=== PATIENT | male | born 1950 | race African-American/Black ===

== ENCOUNTER 2024-10-24 13:40 | Emergency (ER) | payer MEDICAID, SELFPAY ==
[2024-10-24 13:42] VITALS: BP 168/136; PULSE 103; RESP 18; TEMP 36.4; O2SAT 91; BMI 19.7
--- NOTE | 2024-10-24 14:05 | CT_ITS ---
EXAM: CT brain without IV contrast CLINICAL HISTORY: INJURY/PAIN COMPARISON: None TECHNIQUE: Multiple contiguous axial images through the brain were obtained without the administration of intravenous contrast. Two-dimensional coronal and sagittal reformatted images were reconstructed. Low-dose imaging technique was utilized. FINDINGS: No evidence of acute intracranial hemorrhage, midline shift or mass effect. No definite CT evidence of acute territorial cortical infarction. Ventriculomegaly likely related to a combination of central atrophy and ex vacuo dilation from the chronic insults in the medial left temporal lobe and left frontal lobe. Postsurgical change from prior left frontal and right temporal craniotomies. Generalized cerebral atrophy and chronic small-vessel ischemic disease. No acute depressed calvarial fracture. Paranasal sinuses and mastoid air cells are relatively clear. CT/Brain/Head without Contrast IMPRESSION: 1. No acute intracranial abnormality. 2. Atrophy and chronic ischemic changes as above. Reading Location: [facility]
--- NOTE | 2024-10-24 14:17 | EDS_ITS ---
HPI HPI - Fall History of Present Illness Chief Complaint: Fall Informant: family Occured/Mechanism Narrative: Patient fell out of chair Pain/Injury Location: Right parietal scalp Pain Location: head Worsened by: Nothing Relieved by: Nothing Associated Symptoms Associated Symptoms: Negative for Parasthesias, Weakness, Loss of function, Inability to ambulate or Loss of consciousness Narrative Narrative: Patient presents after a fall that occurred today. Patient was eating lunch when he fell out of the chair and onto the floor. Caregivers deny any loss of consciousness. Family does not know his last tetanus. Family states patient is otherwise acting normally. Patient has a history of dementia and is a poor informant. Family states patient has been having some bleeding from the scalp. Tetanus Immunization: Unknown [facility] Medical History (Updated 10/24/24 @ 15:[address] Juan Diego Nation DO) Anxiety Conversion disorder with seizures or convulsions Chronic viral hepatitis C Hypothyroid Insomnia Chronic pain A-fib Hypertension Dementia Depressive disorder Hyperlipemia Hyperlipemia Allergy/AdvReac Type Severity Reaction Status Date / Time No Known Allergies Allergy Verified 10/24/24 13:48 Surgical History (Updated 10/24/24 @ 14:[address] Juan Diego Nation DO) Hx of brain surgery Social History Smoking Status: Former smoker ROS ROS ED Review of Systems ROS Unobtainable: due to mental condition EXAM Physical Exam Const Vital Signs: 10/24/24 13:42 10/24/24 13:49 Temperature 97.6 F L Temperature Source Oral Pulse Rate 103 H Respiratory Rate 18 Respiratory Effort Normal Respiratory Depth Normal Respiratory Pattern Normal Blood Pressure 168/136 H Blood Pressure Mean 146 Pulse Ox 91 Oxygen Delivery Method Room Air Room Air Positive well nourished and well developed General Appearance ED: well developed and NAD HEENT Reports normocephalic HEENT Narrative: There is a superficial abrasion over the right parietal scalp. There is mild bleeding noted. There are no deep lacerations noted. There is no bony crepitance or step-off noted. Neck full ROM and supple Neuro CN's II-XII intact bilaterally, moves all extremities, no focal motor deficits and no sensory deficits noted Sensorium / Orientation: alert MDM MDM MDM Narrative Medical decision making narrative: Differential diagnosis includes intracranial bleeding, stroke, cranial fracture, and scalp abrasion. CT scan of the brain will be obtained to assess for intracranial bleeding and cranial fracture. Radiography Diagnostic Testing: Clinical Impression(s) from Imaging Studies Brain CT 10/24/24 14:05 IMPRESSION: 1. No acute intracranial abnormality. 2. Atrophy and chronic ischemic changes as above. Reading Location: [facility] CT scan of the brain was obtained. There is no acute intracranial abnormality. There are chronic ischemic changes and atrophy. There are postsurgical changes. This was interpreted by the radiologist and was also independently reviewed by myself. Treatment and Re-Evaluation Narrative: Bacitracin dressing was applied to the abrasion. Patient and family were advised of the findings. Patient will be discharged back to the extended care facility. Patient and family understand and are agreeable with plan. All questions were answered. Discharge Plan Triage Chief Complaint: Fall ED Provider: Juan Diego Nation Dx/Rx/DC Orders Clinical Impression: Abrasion of scalp, Fall Instructions: ED Abrasion, ED Head Injury (Adult) Primary Care Provider: Katiana Sethi Referrals: Katiana Sethi MD [Primary Care Provider] - 1-2 Weeks Print Language: Bruneian Disposition Disposition: Home, Self Care
[2024-10-24] MEDS: Diphth,Pertuss(Acell),Tet Vac 0.5 ML Vial IM (14:26)
[2024-10-24 16:13] VITALS: BP 127/55; PULSE 89; RESP 18; TEMP 36.6; O2SAT 90
== END 2024-10-24 16:18 | disposition home or self-care (01) ==
PROVIDERS: Emergency Provider Emergency Medicine; PCP Hospitalist; Visit Provider Emergency Medicine
DX: S00.01XA Abrasion of scalp, initial encounter (principal); F03.90 Unspecified dementia, unspecified severity, without behavioral disturbance, psychotic disturbance, mood disturbance, and anxiety; W07.XXXA Fall from chair, initial encounter; Z87.891 Personal history of nicotine dependence
CPT/HCPCS: 70450; 90715; 99284

== ENCOUNTER 2024-11-30 16:11 | Emergency (ER) | payer MEDICAID, SELFPAY ==
[2024-11-30 16:13] VITALS: BP 147/91; PULSE 72; RESP 18; TEMP 36.4; O2SAT 96; BMI 20.4
--- NOTE | 2024-11-30 16:42 | CT_ITS ---
PROCEDURE: CHEST WITHOUT CONTRAST 11/30/2024 REASON FOR EXAM: (L) RIB TRAUMA TECHNIQUE: Chest CT without contrast. Coronal and Sagittal reconstruction series were provided. One or more dose reduction techniques were used (e.g., Automated exposure control, adjustment of the mA and/or kV according to patient size, use of iterative reconstruction technique COMPARISON: None FINDINGS: Heart size is within normal limits. Mild LAD coronary artery calcifications. No significant pericardial effusion. Borderline ectasia of the ascending thoracic aorta measuring 4 cm. Normal caliber pulmonary arteries. No bulky adenopathy. Mild nonspecific bilateral perinephric fat stranding, greater on the right. Superficial soft tissues are within normal limits. Central airways are patent. Small nodular lesion in the distal right mainstem bronchus measuring 5 mm. No focal consolidation, pleural effusion or pneumothorax. Focal ground-glass opacity in the posterior left apex measuring 16 mm. 4 mm solid nodule in the superior segment of the left lower lobe. Multiple subacute/chronic right sided rib fractures laterally and posteriorly. No acute appearing fractures. Multifocal trabecular thickening and sclerosis of the T6, T9 and T12 vertebral bodies which could relate to multifocal Paget's disease. CT/Chest without Contrast IMPRESSION: 1. No acute appearing fractures. Multiple chronic right-sided rib fractures. 2. Trabecular thickening and sclerosis of the T6, T9 and T12 vertebral bodies w hich may relate to Paget's disease. Correlate with prior imaging if available. 3. Focal ground-glass nodule at the posterior left apex measuring 16 mm. 4 mm left lower lobe pulmonary nodule. Recommend [address] follow-up to reassess and/or comparison to prior imaging. 4. Coronary artery disease. Ectasia of the ascending thoracic aorta measuring 4 cm. 5. 5 mm nodular lesion in the right mainstem bronchus which may relate to secre tions, however a endobronchial lesion can not be excluded. Recommend follow-up imaging or direct visualization for definitive a ssessment. Reading Location: [facility]
--- NOTE | 2024-11-30 16:42 | CT_ITS ---
PROCEDURE: SPINE CERVICAL WITHOUT CONTRAS 11/30/2024 REASON FOR EXAM: FALL TECHNIQUE: Cervical spine CT without contrast. Coronal and Sagittal reconstruction series were provided. One or more dose reduction techniques were used (e.g., Automated exposure control, adjustment of the mA and/or kV according to patient size, use of iterative reconstruction technique FINDINGS: Alignment: 2 mm of anterolisthesis of C3 on C4, 2 mm of anterolisthesis of C4 on C5 and 2 mm of retrolisthesis of C6 on C7. reversal of the normal lordotic curvature. Vertebrae: No acute fracture. Soft Tissues: Unremarkable. Other: C1-2: Hypertrophy and calcification of the cruciate ligament. C2-3: Moderate bilateral facet hypertrophy produces mild bilateral neural foraminal stenosis. Small central disc protrusion produces mild spinal stenosis. C3-4: Mild right facet hypertrophy. 2 mm of anterolisthesis of C3 on C4. With no central spinal stenosis and mild bilateral neural foraminal stenosis. C4-5: Moderate right facet hypertrophy with ankylosis of the facet joint. 2 mm of anterolisthesis of C4 on C5 with no central spinal stenosis and mild bilateral neural foraminal stenosis. C5-6: Mild left facet hypertrophy produces mild left neural foraminal stenosis. No central spinal stenosis. C6-7: 2 mm of retrolisthesis of C6 on C7 with a mild broad disc osteophyte complex produces moderate spinal stenosis and mild bilateral neural foraminal stenosis. C7-T1: CT/Spine Cervical without Contras IMPRESSION: No acute fracture or subluxation. Degenerative disc disease with reversal of the normal lordotic curvature. Reading Location: [id number]
--- NOTE | 2024-11-30 16:42 | CT_ITS ---
PROCEDURE: BRAIN/HEAD WITHOUT CONTRAST 11/30/2024 REASON FOR EXAM: FALL TECHNIQUE: Head CT without intravenous contrast. Coronal and Sagittal reconstruction series were provided. One or more dose reduction techniques were used (e.g., Automated exposure control, adjustment of the mA and/or kV according to patient size, use of iterative reconstruction technique. COMPARISON: 10/24/2024 FINDINGS: Brain: Healed bilateral parietal craniotomy with encephalomalacia of the left frontal lobe in anterior left parietal lobe. No area of increased attenuation to suggest acute hemorrhage. CSF Spaces: Moderate generalized cerebral atrophy Sinuses/Mastoids: Clear at visualized levels Bones: Healed bilateral parietal craniotomy. CT/Brain/Head without Contrast IMPRESSION: NO ACUTE FINDINGS Reading Location: [id number]
--- NOTE | 2024-11-30 16:44 | EDS_ITS ---
HPI History of Present Illness Chief Complaint: Upper Extremity Injury Informant: EMS Narrative Narrative: 74-year-old male who is ANO x 1 at baseline per reports was found on the ground today at [facility]. Reported possible injury to the left shoulder. Patient himself cannot relate to me any meaningful history as the only thing able to tell me is for me not to touch him in to leave him alone. PFSH PFSH Medical History Anxiety Conversion disorder with seizures or convulsions Chronic viral hepatitis C Hypothyroid Insomnia Chronic pain A-fib Hypertension Dementia Depressive disorder Hyperlipemia Hyperlipemia Home Medications ?Medication ?Instructions ?Recorded ?Last Taken ?Type acetaminophen 500 mg capsule 500 mg PO Q6H PRN pain Unknown History albuterol sulfate 90 mcg/actuation 2 inh inhalation Q6 H PRN shortness 11/30/24 Unknown History aerosol inhaler of breath or wheezing amlodipine 5 mg tablet 5 mg PO DAILY HTN 11/30/24 U nknown History atorvastatin 20 mg tablet 20 mg PO DAILY HYPERLIPIDEMI A 11/30/24 Unknown History cyanocobalamin (vitamin B-12) 1,000 mcg PO DAILY SUPPL EMENT 11/30/24 Unknown History 1,000 mcg tablet divalproex 125 mg capsule,delayed 375 mg PO Q8H VASCUL AR DEMENTIA 11/30/24 Unknown History release sprinkle levetiracetam 500 mg tablet 500 mg PO Q12H SEIZURES Unknown History levothyroxine 75 mcg tablet 150 mcg PO DAILY THYROID 0 11/30/24 Unknown History (Euthyrox) lisinopril 10 mg tablet 10 mg PO DAILY HTN 11/30/24 Unknown History trazodone 50 mg tablet 25 mg PO DAILY INSOMNIA 11/10 10/05 Unknown History Allergy/AdvReac Type Severity Reaction Status Date / Time No Known Allergies Allergy Verified 11/30/24 16:17 Surgical History Hx of brain surgery Social History housing: [facility] Smoking Status: Former smoker ROS ROS ED Review of Systems ROS Unobtainable: due to mental status EXAM Physical Exam Narrative Exam Narrative: Patient is sleeping as I enter the room. He wakes easily. Const Vital Signs:
--- NOTE | 2024-11-30 16:44 | EX.ED.UPPERE ---
HPI History of Present Illness Chief Complaint: Upper Extremity Injury Informant: EMS Narrative Narrative: 74-year-old male who is ANO x 1 at baseline per reports was found on the ground today at . Reported possible injury to the left shoulder. Patient himself cannot relate to me any meaningful history as the only thing able to tell me is for me not to touch him in to leave him alone. PFSH PFSH Medical History Anxiety Conversion disorder with seizures or convulsions Chronic viral hepatitis C Hypothyroid Insomnia Chronic pain A-fib Hypertension Dementia Depressive disorder Hyperlipemia Hyperlipemia Home Medications ?Medication ?Instructions ?Recorded ?Last Taken ?Type acetaminophen 500 mg capsule 500 mg PO Q6H PRN pain 11/30/24 Unknown History albuterol sulfate 90 mcg/actuation 2 inh inhalation Q6H PRN shortness 11/30/24 Unknown History aerosol inhaler of breath or wheezing amlodipine 5 mg tablet 5 mg PO DAILY HTN 11/30/24 Unknown History atorvastatin 20 mg tablet 20 mg PO DAILY HYPERLIPIDEMIA 11/30/24 Unknown History cyanocobalamin (vitamin B-12) 1,000 mcg PO DAILY SUPPLEMENT 11/30/24 Unknown History 1,000 mcg tablet divalproex 125 mg capsule,delayed 375 mg PO Q8H VASCULAR DEMENTIA 11/30/24 Unknown History release sprinkle levetiracetam 500 mg tablet 500 mg PO Q12H SEIZURES 11/30/24 Unknown History levothyroxine 75 mcg tablet 150 mcg PO DAILY THYROID 11/30/24 Unknown History (Euthyrox) lisinopril 10 mg tablet 10 mg PO DAILY HTN 11/30/24 Unknown History trazodone 50 mg tablet 25 mg PO DAILY INSOMNIA 11/30/24 Unknown History Allergy/AdvReac Type Severity Reaction Status Date / Time No Known Allergies Allergy Verified 11/30/24 16:17 Surgical History Hx of brain surgery Social History housing: longterm Smoking Status: Former smoker ROS ROS ED Review of Systems ROS Unobtainable: due to mental status EXAM Physical Exam Narrative Exam Narrative: Patient is sleeping as I enter the room. He wakes easily. Const Vital Signs: 11/30/24 16:13 Temperature 97.6 F L Temperature Source Temporal Pulse Rate 72 Respiratory Rate 18 Blood Pressure 147/91 H Blood Pressure Mean 109 Pulse Ox 96 Oxygen Delivery Method Room Air Positive well nourished and well developed General Appearance ED: well developed HEENT Reports normocephalic, head/scalp atraumatic and moist mucous membranes Eyes PERRL and EOMs intact bilaterally Neck full ROM, no lymphadenopathy, supple and no JVD Resp normal respiratory effort and clear to auscultation bilaterally Cardio regular rate, regular rhythm and no murmurs GI normal to inspection, nondistended, normoactive bowel sounds and non-tender Palpation: soft Back/Spine no CVA tenderness and normal ROM Extremity Extremity Narrative: While I cannot have the patient to move his arm because he will dissipate and that I am able to palpate the arm and appreciate an obvious conformity or dislocation. Distally he has excellent capillary refill and strong radial and ulnar pulse. General Extremety ED: Negative for edema General Extremity: Negative for edema Neuro Sensorium / Orientation: alert Motor Exam: strength 5/5 throughout Skin no rashes or lesions noted Skin Narrative: Superficial abrasion to left elbow MDM MDM MDM Narrative Medical decision making narrative: Differential diagnosis includes but not limited to intracranial hemorrhage skull fracture cervical spine fracture rib fractures shoulder dislocation/Fracture clavicle fracture CT of the brain cervical spine and chest does not reveal any acute traumatic injuries. Please see radiologist read for full details. My independent interpretation plain films of the left shoulder is no acute fracture or dislocation History & Record Review Discussion w/independent historian: EMS personnel, Patient and Other (SNF Paperwork) Additional record(s) reviewed:: Prior ED visit Discharge Plan Triage Chief Complaint: Upper Extremity Injury ED Provider: Ryan Thompson Dx/Rx/DC Orders Clinical Impression: Fall, Abrasion of elbow Instructions: ED Abrasion Prescriptions: No Action acetaminophen 500 mg capsule 500 mg PO Q6H PRN (Reason: pain) albuterol sulfate 90 mcg/actuation HFA aerosol inhaler 2 inh inhalation Q6H PRN (Reason: shortness of breath or wheezing) amlodipine 5 mg tablet 5 mg PO DAILY atorvastatin 20 mg tablet 20 mg PO DAILY cyanocobalamin (vitamin B-12) 1,000 mcg tablet 1,000 mcg PO DAILY divalproex 125 mg capsule, delayed rel sprinkle 375 mg PO Q8H levetiracetam 500 mg tablet 500 mg PO Q12H levothyroxine [Euthyrox] 75 mcg tablet 150 mcg PO DAILY lisinopril 10 mg tablet 10 mg PO DAILY trazodone 50 mg tablet 25 mg PO DAILY Primary Care Provider: Katiana Sethi Referrals: Katiana Sethi MD [Primary Care Provider] - Keep El[facility] appointment Activity Restrictions/Additional Instructions: CT imaging of your brain cervical spine and chest did not reveal any acute traumatic injury. X-rays of your left shoulder did not show an obvious dislocation or fracture. Print Language: Yakut Disposition Disposition: Home, Self Care
--- NOTE | 2024-11-30 17:06 | RAD_ITS ---
PROCEDURE: SHOULDER MIN 2 VIEWS 11/30/2024 REASON FOR EXAM: FALL TECHNIQUE: 4 view(s) of the left shoulder FINDINGS: Bones: No acute fracture. Joints: Mild joint space narrowing and calcified body of the left acromioclavicular joint consistent with mild arthrosis. Soft tissues: Soft tissues are unremarkable. Other: RAD/Shoulder min 2 Views IMPRESSION: Acromioclavicular joint arthrosis. Reading Location: [id number]
[2024-11-30] MEDS: LORazepam 0.5 MG Tablet PO (17:54)
--- NOTE | 2024-11-30 18:09 | CM.ED ---
Social work Due to patient's confusion and becoming agitated, this SW attempted to call patient's sister and legal guardian, Lin Mireles (ph: [phone]). That number was not in service and SW called patient's sister, Eveline Magaña (ph: [phone]). Eveline answered the phone and stated Lin and Eveline were aware of patient's fall and presentation to [facility] ED. Eveline provided Lin's new phone number (ph: [phone]). GA called Lin at the new phone number and had to leave a voicemail. SW provided SW call back number and ED front end technician number should Lin have any questions. Barbi Rooney, [employer] OPERATOR, [employer]ER
[2024-11-30 18:12] VITALS: PULSE 78; RESP 18
[2024-11-30 18:51] VITALS: BP 147/91; PULSE 78; RESP 18; TEMP 36.4; O2SAT 96
--- NOTE | 2024-11-30 18:55 | ED.RN ---
Report called to Heriberto Blanco.
== END 2024-11-30 18:55 | disposition home or self-care (01) ==
PROVIDERS: Emergency Provider Emergency Medicine; PCP Hospitalist; Visit Provider Emergency Medicine
DX: S50.312A Abrasion of left elbow, initial encounter (principal); F03.93 Unspecified dementia, unspecified severity, with mood disturbance; F03.94 Unspecified dementia, unspecified severity, with anxiety; F03.918 Unspecified dementia, unspecified severity, with other behavioral disturbance; I48.91 Unspecified atrial fibrillation; W19.XXXA Unspecified fall, initial encounter; Y92.129 Unspecified place in nursing home as the place of occurrence of the external cause; I10 Essential (primary) hypertension; E78.5 Hyperlipidemia, unspecified; E03.9 Hypothyroidism, unspecified; Z86.19 Personal history of other infectious and parasitic diseases; Z79.890 Hormone replacement therapy; Z79.899 Other long term (current) drug therapy; Z87.891 Personal history of nicotine dependence
CPT/HCPCS: 70450; 71250; 72125; 73030; 99284

== ENCOUNTER 2024-12-07 08:48 | Emergency (ER) | payer MEDICAID, SELFPAY ==
[2024-12-07 08:49] VITALS: BP 128/82; PULSE 67; RESP 20; TEMP 36.2; O2SAT 100; BMI 20.5
--- NOTE | 2024-12-07 08:52 | CT_ITS ---
PROCEDURE: SPINE CERVICAL WITHOUT CONTRAS 12/07/2024 REASON FOR EXAM: TRAUMA TECHNIQUE: Cervical spine CT without contrast. Coronal and Sagittal reconstruction series were provided. One or more dose reduction techniques were used (e.g., Automated exposure control, adjustment of the mA and/or kV according to patient size, use of iterative reconstruction technique RADIATION DOSE SUMMARY: DLP: 1207.44 mGycm COMPARISON: November 30 2024 FINDINGS: There is loss of the lordosis. The odontoid is intact. The skull base appears intact. There is grade 1 spondylolisthesis at C3-4, 0.2 cm. There is grade 1 retrolisthesis at C6-7, 0.3 cm. There is 50% loss of vertebral body height at C6, unchanged. There is loss of disc height from C3-T1, unchanged. There is mild central canal stenosis at C6-7, unchanged. There is significant foraminal narrowing from C5-T2 secondary to degeneration, unchanged. Soft Tissues: Prevertebral soft tissues are unremarkable. Other: CT/Spine Cervical without Contras IMPRESSION: There is loss of the lordosis. There is grade 1 spondylolisthesis at C3-4, 0.2 cm. There is grade 1 retrolisth esis at C6-7, 0.3 cm. There is 50% loss of vertebral body height at C6, unchanged. There is loss of disc height from C3-T1, unchanged. There is mild central canal stenosis at C6-7, unchanged. There is significant foraminal narrowing from C5-T2 secondary to degeneration, unchanged. There is no visible acute traumatic injury. Reading Location: [facility]
--- NOTE | 2024-12-07 08:52 | CT_ITS ---
PROCEDURE: BRAIN/HEAD WITHOUT CONTRAST (CTBR), 12/07/2024 REASON FOR EXAM: TRAUMA COMPARISON: 11/30/2024 TECHNIQUE: CT head was performed without IV contrast. Multiplanar reformats were generated. RADIATION DOSE SUMMARY: CTDlvol: 44.99 mGy DLP: 812.98 mGycm One or more dose reduction techniques were used (e.g., Automated exposure control, adjustment of the mA and/or kV according to patient size, use of iterative reconstruction technique). FINDINGS: Exam is slightly limited by oblique planes of axial and sagittal images. Cerebrum: Similar large zone of LEFT frontotemporal encephalomalacia, likely related to prior trauma or infarct. No definite superimposed acute territorial infarct, visible mass, or visible acute appearing parenchymal hemorrhage. [id number] diffuse cerebral volume loss. Suspect mild chronic microvascular ischemic changes. Cerebellum/brainstem: Grossly unremarkable. Note slight limitation due to beam hardening artifact. Ventricles/extra-axial spaces: Suspect a thin low-density RIGHT cerebral convexity extra-axial likely subdural collection, 5 mm in thickness. No significant mass-effect. Ex vacuo dilatation of the LEFT frontal horn otherwise lateral and 3rd ventriculomegaly appears roughly proportionate to fairly significant cerebral volume loss. Paranasal sinuses/mastoid air cells: Trace to mild mucosal thickening in the RIGHT maxillary sinus, partially imaged.. Scalp/calvarium: Similar bilateral craniotomy changes.. Other: None. CT/Brain/Head without Contrast IMPRESSION: 1. No visible acute appearing intracranial hemorrhage. 2. Suspect a thin RIGHT cerebral convexity low-density collection such as a chr onic subdural hematoma or hygroma/subdural effusion. Note that this finding can be posttraumatic. No midline shift. 3. Additional description as above. Reading Location: [id number]
--- NOTE | 2024-12-07 08:53 | ED.VIS.FALL ---
HPI HPI - Fall History of Present Illness Chief Complaint: Fall Informant: patient, EMS and SNF Narrative Narrative: 74-year-old male from [facility] presenting to the emergency room with forehead injury from fall. Patient typically is in a wheelchair can ambulate. He has had several recent falls. EMS notes hematoma and swelling with slight puncture wound to the mid forehead. Patient's had a uneventful transfer to the hospital. He is not on blood thinners. He does take divalproex. Patient is reportedly ANO x 1 at baseline. PFSH [facility] Medical History Anxiety Conversion disorder with seizures or convulsions Chronic viral hepatitis C Hypothyroid Insomnia Chronic pain A-fib Hypertension Dementia Depressive disorder Hyperlipemia Hyperlipemia Home Medications ?Medication ?Instructions ?Recorded ?Last Taken ?Type acetaminophen 500 mg capsule 500 mg PO Q6H PRN pain 11/30/24 Unknown History albuterol sulfate 90 mcg/actuation 2 inh inhalation Q6H PRN shortness 11/30/24 Unknown History aerosol inhaler of breath or wheezing amlodipine 5 mg tablet 5 mg PO DAILY HTN 11/30/24 Unknown History atorvastatin 20 mg tablet 20 mg PO QHS HYPERLIPIDEMIA 11/30/24 Unknown History cyanocobalamin (vitamin B-12) 1,000 mcg PO DAILY SUPPLEMENT 11/30/24 Unknown History 1,000 mcg tablet divalproex 125 mg capsule,delayed 375 mg PO TID VASCULAR DEMENTIA 11/30/24 Unknown History release sprinkle levetiracetam 500 mg tablet 500 mg PO BID SEIZURES 11/30/24 Unknown History levothyroxine 75 mcg tablet 150 mcg PO DAILY THYROID 11/30/24 Unknown History (Euthyrox) lisinopril 10 mg tablet 10 mg PO DAILY HTN 11/30/24 Unknown History trazodone 50 mg tablet 25 mg PO QHS INSOMNIA 11/30/24 Unknown History ciprofloxacin HCl 500 mg tablet 500 mg PO BID 12/07/24 Unknown History ibuprofen 200 mg tablet (Addaprin) 400 mg PO Q6H PRN pain 12/07/24 Unknown History lidocaine 4 % topical patch 1 patch topical DAILY 12/07/24 Unknown History (Aspercreme (lidocaine)) Allergy/AdvReac Type Severity Reaction Status Date / Time No Known Allergies Allergy Verified 12/07/24 08:49 Surgical History Hx of brain surgery Social History housing: [facility] Smoking Status: Former smoker ROS ROS ED ROS Narrative Recent falls Constitutional Constitutional ED: Denies chills or fever(s) Eyes Eyes: Denies change in vision or diplopia ENT ENT ED: Denies ear pain, rhinorrhea or sore throat Cardiovascular Cardiovascular: Denies chest pain or racing heartbeat Respiratory/Chest Respiratory/Chest: Denies cough or dyspnea Gastrointestinal Gastrointestinal: Denies abdominal pain, diarrhea, nausea or vomiting Genitourinary Genitourinary ED: Denies dysuria or hematuria Musculoskeletal Musculoskeletal: Denies back pain or neck pain Integumentary Denies abscess or rash Neurologic Neurologic: Denies headache(s) or weakness Endocrine Endocrinology: Denies polyuria Hematologic/Lymphatic Hematologic/Lymphatic: Denies easy bleeding or easy bruising Allergic/Immunologic Allergic/Immunologic ED: Denies mouth swelling, tongue swelling or urticaria EXAM Physical Exam Narrative Exam Narrative: Patient sitting up in the bed no apparent distress or discomfort Const Vital Signs: 12/07/24 08:49 12/07/24 08:55 12/07/24 11:06 Temperature 97.2 F L Temperature Source Temporal Pulse Rate 67 64 Respiratory Rate 20 H 18 Respiratory Depth Normal Respiratory Pattern Normal Blood Pressure 128/82 H 147/84 H Blood Pressure Mean 97 105 Pulse Ox 100 100 Positive well nourished and well developed General Appearance ED: well developed and NAD HEENT Reports normocephalic and moist mucous membranes HEENT Narrative: There is a 3 cm round hematoma to the mid forehead. There is a small 2 mm linear break in the skin with no active bleeding. Small chronic appearing indentation to the left high frontal scalp Eyes PERRL and EOMs intact bilaterally Neck full ROM, no lymphadenopathy, supple and no JVD Resp normal respiratory effort and clear to auscultation bilaterally Cardio regular rate, regular rhythm and no murmurs GI normal to inspection, nondistended, normoactive bowel sounds and non-tender Palpation: soft Back/Spine no CVA tenderness and normal ROM Extremity normal to inspection General Extremety ED: Negative for edema General Extremity: Negative for edema Neuro Neuro Narrative: Patient opened his eyes to name. Looks around the room. He moves all extremities. He is redirectable. Sensorium / Orientation: alert Motor Exam: strength 5/5 throughout Psych Mood & Affect: Negative for depressed or tearful Skin no rashes or lesions noted Skin Narrative: See head exam MDM MDM MDM Narrative Medical decision making narrative: Differential diagnosis includes but not limited to skull fracture intracranial hemorrhage hematoma cervical spine fracture. Concussion Patient was reportedly on valproic acid. His level today is less than 3. CT the brain was obtained which was read by radiology reviewed by myself. They are reading a suspected thin right cerebral convexity low-density collection such as a chronic subdural versus hygroma/subdural effusion. In speaking with radiology this was present on his last CT and does not appear significantly changed. Therefore I think this is unlikely to be acute from today's injury. I wrote a note to the [facility] that they may wish to follow-up with neurosurgery as an outpatient if indicated. I think the patient can be discharged home from our standpoint today. Return if worsening or concerns. History & Record Review Discussion w/independent historian: EMS personnel, Patient and Other (SNF) Additional record(s) reviewed:: Prior outpatient record, Prior ED visit and Prior labs Lab Data Attestation: I reviewed the patient's lab results. Labs: Laboratory Results - last 24 hr 12/07/24 09:00 Valproic Acid < 3 L Radiography Diagnostic Testing: Clinical Impression(s) from Imaging Studies Brain CT 12/07/24 08:52 IMPRESSION: 1. No visible acute appearing intracranial hemorrhage. 2. Suspect a thin RIGHT cerebral convexity low-density collection such as a chronic subdural hematoma or hygroma/subdural effusion. Note that this finding can be posttraumatic. No midline shift. 3. Additional description as above. Reading Location: [facility] Cervical Spine CT 12/07/24 08:52 IMPRESSION: There is loss of the lordosis. There is grade 1 spondylolisthesis at C3-4, 0.2 cm. There is grade 1 retrolisthesis at C6-7, 0.3 cm. There is 50% loss of vertebral body height at C6, unchanged. There is loss of disc height from C3-T1, unchanged. There is mild central canal stenosis at C6-7, unchanged. There is significant foraminal narrowing from C5-T2 secondary to degeneration, unchanged. There is no visible acute traumatic injury. Reading [facility] Discharge Plan Triage Chief Complaint: Fall ED Provider: Ryan Thompson Dx/Rx/DC Orders Clinical Impression: Head injury, Fall, Traumatic hematoma of forehead Instructions: ED Head Injury (Adult), ED Hematoma Prescriptions: No Action acetaminophen 500 mg capsule 500 mg PO Q6H PRN (Reason: pain) albuterol sulfate 90 mcg/actuation HFA aerosol inhaler 2 inh inhalation Q6H PRN (Reason: shortness of breath or wheezing) amlodipine 5 mg tablet 5 mg PO DAILY atorvastatin 20 mg tablet 20 mg PO QHS cyanocobalamin (vitamin B-12) 1,000 mcg tablet 1,000 mcg PO DAILY divalproex 125 mg capsule, delayed rel sprinkle 375 mg PO TID levetiracetam 500 mg tablet 500 mg PO BID levothyroxine [Euthyrox] 75 mcg tablet 150 mcg PO DAILY lisinopril 10 mg tablet 10 mg PO DAILY trazodone 50 mg tablet 25 mg PO QHS lidocaine [Aspercreme (lidocaine)] 4 % adhesive patch,medicated 1 patch topical DAILY Rx Instructions: APPLY TO LEFT RIB IN MORING FOR PAIN ciprofloxacin HCl 500 mg tablet 500 mg PO BID Rx Instructions: GIVE 1 TABLET BY MOUTH 2 TIMES A DAY FOR 7 DAYS; STARTED ON 12/06/24, END DATE IS 12/13/24 ibuprofen [Addaprin] 200 mg tablet 400 mg PO Q6H PRN (Reason: pain) Primary Care Provider: Katiana Sethi Referrals: Katiana Sethi MD [Primary Care Provider] - 1 Week Activity Restrictions/Additional Instructions: There does not appear to be an appreciable change in a fluid collection in the right cerebral subdural area. I would recommend following up with a neurosurgeon at some point to further evaluate this. Print Language: Frisian Disposition Disposition: [facility] Facility Discharge Location: [facility] Discharge Date/Time: 12/07/24 11:47
[2024-12-07 10:07] LABS: Valproic Acid (Depakene) Level < 3 ug/mL (50-100)
[2024-12-07 11:06] VITALS: BP 147/84; PULSE 64; RESP 18; O2SAT 100
== END 2024-12-07 11:47 | disposition skilled nursing facility (03) ==
LOC: ED 09:30
PROVIDERS: Emergency Provider Emergency Medicine; PCP Hospitalist; Visit Provider Emergency Medicine
DX: S00.83XA Contusion of other part of head, initial encounter (principal); F03.93 Unspecified dementia, unspecified severity, with mood disturbance; F03.918 Unspecified dementia, unspecified severity, with other behavioral disturbance; F03.94 Unspecified dementia, unspecified severity, with anxiety; I48.91 Unspecified atrial fibrillation; Z91.81 History of falling; W19.XXXA Unspecified fall, initial encounter; Y92.129 Unspecified place in nursing home as the place of occurrence of the external cause; M95.2 Other acquired deformity of head; R93.0 Abnormal findings on diagnostic imaging of skull and head, not elsewhere classified; I10 Essential (primary) hypertension; E78.5 Hyperlipidemia, unspecified; E03.9 Hypothyroidism, unspecified; Z79.890 Hormone replacement therapy; Z79.899 Other long term (current) drug therapy; Z87.891 Personal history of nicotine dependence
CPT/HCPCS: 70450; 72125; 80164; 99284